=== PATIENT | female | born 1980 | race Caucasian/White ===

== ENCOUNTER 2021-11-04 10:35 | Emergency (ER) | payer OTHER | END 2021-11-04 12:50 | disposition home or self-care (01) | LOC: CSHERS 10:35 | DX: S06.0X0A Concussion without loss of consciousness, initial encounter (principal); S16.1XXA Strain of muscle, fascia and tendon at neck level, initial encounter; F17.210 Nicotine dependence, cigarettes, uncomplicated; V49.9XXA Car occupant (driver) (passenger) injured in unspecified traffic accident, initial encounter | CPT/HCPCS: 70450; 72125 ==

== ENCOUNTER 2021-11-11 15:13 | Emergency (ER) | payer OTHER | END 2021-11-11 15:55 | disposition home or self-care (01) | LOC: CSHERS 15:13 | DX: O26.891 Other specified pregnancy related conditions, first trimester (principal); R11.0 Nausea; Z3A.00 Weeks of gestation of pregnancy not specified; F17.200 Nicotine dependence, unspecified, uncomplicated | CPT/HCPCS: 99283 ==

== ENCOUNTER → 2022-06-07 | Day surgery (SDC) | payer OTHER ==
[~2022-06-07] MED LIST: Acetaminophen 500 MG TAB ONE; Iron Sucrose Complex 500 MG in Sodium Chloride 0.9% 250 ML 250 ML IVPB SCH
== END ==
LOC: CSHSDC 09:19
PROVIDERS: ATTEND Family Medicine
DX: O99.019 Anemia complicating pregnancy, unspecified trimester (principal); D64.9 Anemia, unspecified; Z3A.00 Weeks of gestation of pregnancy not specified
CPT/HCPCS: J1756; J7050

== ENCOUNTER 2022-06-29 19:00 | Inpatient (IN) | payer OTHER ==
[2022-06-30] MEDS ORDERED: Promethazine HCl 25 MG/ML VIAL IM PRN ×2 (07:09→16:13)
[2022-06-30] MEDS ORDERED: hydrALAZINE 20 MG/ML VIAL SLOW IVP PRN ×2 (07:09→23:21)
[2022-06-30] MEDS ORDERED: Ondansetron PF 4 MG/2 ML Vial IVP PRN ×2 (07:09→16:13)
[2022-06-30] MEDS ORDERED: Lidocaine 1% (PF) 30 ML VIAL SC PRN (07:09)
[2022-06-30] MEDS ORDERED: Misoprostol 200 MCG TAB PR PRN (07:10)
[2022-06-30] MEDS ORDERED: Acetaminophen 500 MG TAB PO PRN (07:10)
[2022-06-30] MEDS ORDERED: Ibuprofen 800 MG TAB PO PRN (07:10)
[2022-06-30] MEDS ORDERED: NS w/ Oxytocin 30 units 500 ML IV SCH ×3 (07:15→23:21)
[2022-06-30] MEDS ORDERED: Lidocaine 1% (PF) 30 ML VIAL ONE ×2 (08:02→20:56)
[2022-06-30 08:04] VITALS: BMI 30.9
[2022-06-30 09:03] LABS: Amphetamine Not Detected (NotDetected); Barbiturates Screen Not Detected (NotDetected); Benzodiazepine Screen Not Detected (NotDetected); Cocaine Metabolite Screen Not Detected (NotDetected); Methadone Not Detected (NotDetected); Methamphetamine Not Detected (NotDetected); Opiate Screen Not Detected (NotDetected); Oxycodone Screen Not Detected (NotDetected); Phencyclidine (PCP) Not Detected (NotDetected); THC/Cannabinoid Screen Not Detected (NotDetected); Tricyclic Screen Not Detected (NotDetected)
[2022-06-30 09:27] LABS: Hemoglobin 10.8 g/dL (12.0-15.5); Mean Corpuscular HGB CONC 31.4 g/dL (32.0-36.0); Mean Corpuscular Hemoglobin 27.7 pg (27.0-33.0); Mean Corpuscular Volume 88.2 fl (81.6-98.3); Mean Platelet Volume 11.3 fl (7.4-10.4); Platelet Count 364 10x3/uL (150-450); RBC Distribution Width 20.1 % (11.5-14.5); White Blood Cell (WBC) Count 13.8 10x3/uL (3.5-10.5)
[2022-06-30 09:43] LABS: Syphilis Antibody Nonreactive (Nonreactive); Syphilis Antibody Index 0.06 S/CO (<1.00 Non-Reactive)
[2022-06-30 10:06] LABS: HBSAg Index 0.14 S/CO (0-0.99); Hep B Surf Ag - L&D Non-Reactive S/CO (NonReactive)
[2022-06-30] MEDS ORDERED: Butorphanol Tartrate 1 MG/ML VIAL SLOW IVP PRN (12:22)
[2022-06-30] MEDS ORDERED: fentaNYL 50 mcg/mL 1 mL Vial ONE ×2 (12:36→17:33)
[2022-06-30] MEDS: fentaNYL 50 mcg/mL 1 mL Vial SLOW IVP PRN ×2 (12:38→15:02)
[2022-06-30] MEDS ORDERED: Calcium Carbonate 500 MG ChewTAB PO PRN (13:12)
[2022-06-30] MEDS ORDERED: Calcium Carbonate 500 MG ChewTAB PO SCH (14:00)
[2022-06-30] MEDS ORDERED: Fentanyl 2 mcg/Bup 0.1% Cadd 100 ML ONE (14:59)
[2022-06-30] MEDS ORDERED: diphenhydrAMINE 50 MG/ML VIAL IVP PRN (16:13)
[2022-06-30] MEDS ORDERED: Naloxone HCl 0.4 mg/ml Vial IVP PRN ×2 (16:13)
[2022-06-30] MEDS ORDERED: Moisturizing Cream (Eucerin) 113 GM JAR TOP PRN (16:13)
[2022-06-30] MEDS ORDERED: Lactated Ringer's 500 ML IV PRN (16:13)
[2022-06-30] MEDS ORDERED: ePHEDrine Sulfate 50 MG/10 ML VIAL SLOW IVP PRN (16:13)
[2022-06-30] MEDS ORDERED: Fentanyl 2 mcg/Bupivacaine 0.1% Cassette 100 ML EPIDURAL SCH (16:15)
[2022-06-30] MEDS: Lactated Ringer's 1,000 ML IV SCH ×2 (16:15→22:16)
[2022-06-30] MEDS ORDERED: Communication Order-Pharmacy FS SCH (16:15)
[2022-06-30] MEDS ORDERED: Benzocaine-Menthol 82.5 ML CAN TOP PRN (23:21)
[2022-06-30] MEDS ORDERED: Preparation H Ointment 28 GM TUBE PR PRN (23:21)
[2022-06-30] MEDS ORDERED: diphenhydrAMINE 25 MG CAP PO PRN (23:21)
[2022-06-30] MEDS ORDERED: Methylergonovine 0.2 MG/ML VIAL IM PRN (23:21)
[2022-06-30] MEDS ORDERED: Milk Of Magnesia 30 ML UDCUP PO PRN (23:21)
[2022-06-30] MEDS ORDERED: Misoprostol 200 MCG TAB VAG PRN (23:21)
[2022-06-30] MEDS ORDERED: Boostrix 0.5 ML (Tdap) VIAL (>/=7 yrs of age) IM ONE (23:21)
[2022-06-30] MEDS ORDERED: Lanolin Ointment 7 GM TUBE TOP PRN (23:21)
[2022-06-30] MEDS ORDERED: Bisacodyl 10 MG SUPP PR PRN (23:21)
[2022-06-30] MEDS ORDERED: Docusate 100 MG CAP PO SCH (23:30)
[2022-06-30] MEDS ORDERED: guaiFENesin ER 600 MG TAB PO PRN (23:52)
[2022-06-30] MEDS ORDERED: guaiFENesin ER 600 MG TAB PO SCH (23:59)
[2022-07-01] MEDS: Lactated Ringer's 1,000 ML IV SCH (01:50)
[2022-07-01] MEDS: Ibuprofen 800 MG TAB PO SCH ×3 (05:23→21:24)
[2022-07-01] MEDS: Ferrous Sulfate 325 MG TAB PO SCH ×2 (09:21→16:52)
[2022-07-01] MEDS: Docusate 100 MG CAP PO SCH ×2 (09:22→20:16)
[2022-07-01] MEDS: Acetaminophen 325 MG TAB PO PRN ×2 (09:22→20:16)
[2022-07-01] MEDS: Prenatal Vitamin 1 TAB PO SCH (09:22)
[2022-07-01] MEDS ORDERED: predniSONE 20 MG TAB PO SCH (11:15)
[2022-07-01] MEDS: Ipratropium/Albuterol 3 ML NEB NEB SCH ×2 (14:30→20:52)
[2022-07-01] MEDS ORDERED: Bupivacaine/Epinephrine 0.25% 30 ML VIAL ONE (18:27)
[2022-07-02] MEDS: Ipratropium/Albuterol 3 ML NEB NEB SCH ×3 (02:08→12:40)
[2022-07-02] MEDS: Cepastat Lozenges 1 LOZ PO PRN ×2 (04:32→10:00)
[2022-07-02] MEDS: Ibuprofen 800 MG TAB PO SCH ×2 (06:51→16:06)
[2022-07-02] MEDS ORDERED: predniSONE 20 MG TAB PO SCH (08:00)
[2022-07-02] MEDS: Ferrous Sulfate 325 MG TAB PO SCH (08:43)
[2022-07-02] MEDS: Docusate 100 MG CAP PO SCH (10:00)
[2022-07-02] MEDS: Prenatal Vitamin 1 TAB PO SCH (10:00)
[2022-07-02 19:51] VITALS: TEMP 98.3
[2022-07-02 19:55] VITALS: BP 124/64
== END 2022-07-02 17:50 | disposition home or self-care (01) | DRG 806 ==
LOC: CSHLD 06-30 06:28 → CSHPP 06-30 23:10
PROVIDERS: ADMIT Obstetrics & Gynecology; ATTEND Obstetrics & Gynecology
PROC: 10E0XZZ Delivery of Products of Conception, External Approach (ICD-10-PCS; principal; 2022-06-30)
PROC: 0HQ9XZZ Repair Perineum Skin, External Approach (ICD-10-PCS; 2022-06-30)
PROC: 3E033VJ Introduction of Other Hormone into Peripheral Vein, Percutaneous Approach (ICD-10-PCS; 2022-06-30)
PROC: 3E0234Z Introduction of Serum, Toxoid and Vaccine into Muscle, Percutaneous Approach (ICD-10-PCS; 2022-07-01)
DX: O99.02 Anemia complicating childbirth (principal); O99.324 Drug use complicating childbirth; Z37.0 Single live birth; Z3A.39 39 weeks gestation of pregnancy; O26.893 Other specified pregnancy related conditions, third trimester; Z67.41 Type O blood, Rh negative; D50.9 Iron deficiency anemia, unspecified; O99.334 Smoking (tobacco) complicating childbirth; F17.210 Nicotine dependence, cigarettes, uncomplicated; F15.10 Other stimulant abuse, uncomplicated; F12.10 Cannabis abuse, uncomplicated; O70.0 First degree perineal laceration during delivery; Z98.890 Other specified postprocedural states; Z79.899 Other long term (current) drug therapy; Z88.0 Allergy status to penicillin; Z87.440 Personal history of urinary (tract) infections; Z86.19 Personal history of other infectious and parasitic diseases
CPT/HCPCS: 36415; 51702; 80306; 85027; 85461; 86780; 86850; 86870; 86900; 86901; 87340; 90384; 94640; 94760; 96372; J2590; J3010; J7120; J7512; J7611; J7620